=== PATIENT | male | born 1995 | race African-American/Black ===

== ENCOUNTER 2020-09-18 03:20 | Inpatient (IN) | payer SELFPAY ==
[2020-09-18] VITALS (14 sets, daily range): BP systolic 127–154; BP diastolic 71–88
[~2020-09-18] VITALS: Ht 177.8 cm; Wt 86.8 kg
[2020-09-18] MEDS: IV NORMAL SALINE 1000ML BAG 1,000 ML IV SCH ×2 (02:55→15:53)
[~2020-09-18 03:20] MED LIST: AMOX500T PO; IBUP-1060 PO; PRED50TA PO
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
[2020-09-18 03:51] LABS: BASO # 0.1 x10^3/uL (0.0-0.2); BASO % 1 % (0-3); EOS # 0.1 x10^3/uL (0.0-0.7); EOS % 1 % (0-3); HEMATOCRIT 45.4 % (39.0-53.0); HEMOGLOBIN 15.2 g/dL (13.0-17.5); LYMPH % 50 % (24-48); MEAN CORPUSCULAR HEMOGLOBIN 31 pg (25-35); MEAN CORPUSCULAR HGB CONC 33 g/dL (31-37); MEAN CORPUSCULAR VOLUME 94 fL (79-100); MONO # 1.4 x10^3/uL (0.0-1.1); MONO % 10 % (0-9); NEUT # 5.3 x10^3/uL (1.8-7.7); NEUT % 39 % (31-73); PLATELET COUNT 306 x10^3/uL (140-400); RED BLOOD COUNT 4.82 x10^6/uL (4.30-5.70); RED CELL DISTRIBUTION WIDTH 12.3 % (11.5-14.5); WHITE BLOOD COUNT 13.9 x10^3/uL (4.0-11.0)
[2020-09-18 03:52] LABS: CREATININE 1.4 mg/dL (0.7-1.3); GFR 74.1; POTASSIUM 3.4 mmol/L (3.5-5.1)
[2020-09-18 03:53] LABS: PROTHROMBIN TIME PATIENT 12.9 SEC (11.7-14.0)
[2020-09-18 03:58] LABS: ALBUMIN 4.4 g/dL (3.4-5.0); ALBUMIN/GLOBULIN RATIO 1.3 (1.0-1.7); MAGNESIUM 2.2 mg/dL (1.8-2.4); TOTAL BILIRUBIN 0.3 mg/dL (0.2-1.0); TOTAL PROTEIN 7.9 g/dL (6.4-8.2)
[2020-09-18] MEDS ORDERED: IV NORMAL SALINE 1000ML BAG 1,000 ML IV ONE (04:00)
[2020-09-18] MEDS ORDERED: fentaNYL PF VIAL 100 MCG/2 ML VIAL IVP ONE (04:00)
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
[2020-09-18] MEDS ORDERED: CONTRAST GIVEN. MC PRN (04:15)
[2020-09-18] MEDS ORDERED: IOHEXOL 350 MG/ML 100 ML VIAL. IV ONE (04:30)
[2020-09-18] MEDS ORDERED: fentaNYL PF VIAL 100 MCG/2 ML VIAL IV ONE (04:30)
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
[2020-09-18] MEDS ORDERED: ONDANSETRON PF 4 MG/2 ML VIAL. IV PRN ×3 (05:45→12:15)
[2020-09-18 06:14] LABS: BILIRUBIN,URINE NEGATIVE (NEG); CLARITY,URINE CLEAR; COLOR,URINE YELLOW; NITRITE,URINE NEGATIVE (NEG); PROTEIN,URINE NEGATIVE (NEG-TRACE); UROBILINOGEN,URINE 0.2 mg/dL (0.2 mg/dL)
[2020-09-18 06:23] LABS: BARBITURATES NEG (NEG); BENZODIAZEPINES NEG (NEG); CANNABINOIDS POS (NEG); COCAINE NEG (NEG); METHADONE NEG (NEG); OPIATES NEG (NEG); PHENCYCLIDINE NEG (NEG)
[2020-09-18 06:25] LABS: AMPHETAMINE/METHAMPHETAMINE NEG (NEG)
[2020-09-18 06:36] LABS: BACTERIA,URINE 0 /HPF (0-FEW); RBC,URINE 0 /HPF (0-2); WBC,URINE 0 /HPF (0-4)
[2020-09-18] MEDS: fentaNYL PF VIAL 100 MCG/2 ML VIAL IV PRN ×4 (08:07→11:38)
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
[2020-09-18] MEDS ORDERED: MORPHINE SULFATE 2 MG/ML VIAL. IV PRN (09:30)
[2020-09-18] MEDS ORDERED: IV RINGERS,LACTATED 1000ML 1,000 ML IV SCH (09:30)
[2020-09-18] MEDS ORDERED: HYDROmorphone 2 MG/ML VIAL IV PRN ×2 (09:30→12:15)
[2020-09-18] MEDS ORDERED: LIDOCAINE 1% PF 2 ML VIAL. ID PRN (09:30)
[2020-09-18] MEDS ORDERED: fentaNYL PF VIAL 100 MCG/2 ML VIAL IV PRN (09:30)
[2020-09-18] MEDS ORDERED: PROCHLORPERAZINE 10 MG/2 ML VIAL. IV PRN (09:30)
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
[2020-09-18] MEDS ORDERED: fentaNYL PF VIAL 100 MCG/2 ML VIAL ONE ×2 (11:41→12:10)
[2020-09-18] MEDS ORDERED: FAMOTIDINE 20 MG/2 ML VIAL ONE (11:46)
[2020-09-18] MEDS ORDERED: DEXAMETHASONE SOD PHOS 4 MG/ML VIAL ONE (11:46)
[2020-09-18] MEDS ORDERED: SEVOFLURANE 31 TO 60 MINUTES. IH ONE (11:53)
[2020-09-18] MEDS ORDERED: LIDOCAINE 2% PF 5 ML VIAL. ONE (11:53)
[2020-09-18] MEDS ORDERED: ONDANSETRON PF 4 MG/2 ML VIAL. ONE (11:53)
[2020-09-18] MEDS ORDERED: PROPOFOL 10 MG/ML (20ML) VIAL. IV ONE (11:53)
[2020-09-18] MEDS ORDERED: ALBUTEROL SULFATE 2.5 MG/3 ML NEBU. NEB PRN (12:15)
[2020-09-18] MEDS ORDERED: cloNIDine HCL 0.1 MG TABLET PO PRN (12:15)
[2020-09-18] MEDS ORDERED: MAG HYDROX/ALUMINUM HYD/SIMETH 30 ML ORAL.SUSP PO PRN (12:15)
[2020-09-18] MEDS ORDERED: ACETAMINOPHEN 650 MG SUPP.RECT. PR PRN (12:15)
[2020-09-18] MEDS ORDERED: SODIUM PHOSPHATES 19/7GM 133 ML ENEMA. PR PRN (12:15)
[2020-09-18] MEDS ORDERED: ACETAMINOPHEN 325 MG TABLET. PO PRN (12:15)
[2020-09-18] MEDS ORDERED: DOCUSATE SODIUM 100 MG CAPSULE. PO PRN (12:15)
[2020-09-18] MEDS ORDERED: 0.9 % SODIUM CHLORIDE 10 ML DISP.SYRIN. IV PRN (12:15)
[2020-09-18] MEDS ORDERED: guaiFENesin ORAL 200 MG/10 ML LIQUID. PO PRN (12:15)
[2020-09-18] MEDS ORDERED: HYDROmorphone 2 MG/ML VIAL ONE (12:30)
[2020-09-18] MEDS ORDERED: VANCOMYCIN 1 GM VIAL. ONE (13:16)
[2020-09-18] MEDS ORDERED: BUPIVACAINE MPF 0.5% 30 ML VIAL. ONE (13:23)
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
[2020-09-18] MEDS ORDERED: POLYETHYLENE GLYCOL 3350 17 GM PACKET. PO PRN (14:00)
[2020-09-18] MEDS ORDERED: MORPHINE SULFATE 4 MG/ML VIAL. IVP PRN (14:00)
[2020-09-18] MEDS ORDERED: DEXTROSE 50% 25 GM / 50ML DISP.SYRIN. IV PRN (14:00)
[2020-09-18] MEDS ORDERED: fentaNYL PF VIAL 100 MCG/2 ML VIAL IVP PRN (14:00)
[2020-09-18] MEDS ORDERED: ONDANSETRON PF 4 MG/2 ML VIAL. IVP PRN (14:00)
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
[2020-09-18] MEDS: SENNOSIDES/DOCUSATE 8.6/50MG TABLET. PO SCH (15:00)
[2020-09-18] MEDS ORDERED: WARFARIN 7.5 MG TABLET. PO ONE (16:00)
[2020-09-18] MEDS: oxyCODONE IR 5 MG TABLET PO PRN (16:49)
--- NOTE | 2020-09-18 17:38 | EKG ---
[facility] [address] [place] [address] Test Date: 2020-09-18 Test Time: 03:43:05 Pat Name: MEME IVORY Department: Room: Gender: M Section Hand Helper: : 1995 Requested By: NÉSTOR SPANN Order Number: [id number] Reading MD: Measurements Intervals [place] Rate: 102 P: -36 CA: 132 QRS: 84 QRSD: 80 T: 66 QT: 334 QTc: 439 Interpretive Statements SUPRAVENTRICULAR RHYTHM COMPLEX(ES) WITH ABERRANT INTRAVENTRICULAR CONDUCTION INCOMPLETE RIGHT BUNDLE BRANCH BLOCK QRS(T) CONTOUR ABNORMALITY CONSIDER ANTEROLATERAL MYOCARDIAL DAMAGE ABNORMAL ECG RI6.01 No previous ECG available for comparison
[2020-09-18] MEDS: HYDROcodone/APAP 7.5/325MG 1 TAB TABLET PO PRN ×2 (18:28→23:38)
[2020-09-18] MEDS: ASPIRIN ENTERIC COATED 325 MG TABLET.DR. PO SCH (21:00)
[2020-09-19 03:00] VITALS: BP 123/51
[2020-09-19] MEDS ORDERED: MAGNESIUM HYDROXIDE 2,400 MG/30 ML ORAL.SUSP. PO PRN (06:00)
[2020-09-19] MEDS: HYDROcodone/APAP 7.5/325MG 1 TAB TABLET PO PRN ×3 (06:20→17:44)
[2020-09-19 07:00] VITALS: BP 127/68
[2020-09-19] MEDS: ASPIRIN ENTERIC COATED 325 MG TABLET.DR. PO SCH ×2 (08:12→20:54)
[2020-09-19] MEDS: SENNOSIDES/DOCUSATE 8.6/50MG TABLET. PO SCH (08:12)
[2020-09-19] MEDS: IV NORMAL SALINE 1000ML BAG 1,000 ML IV SCH ×2 (08:15→13:15)
[2020-09-19] MEDS: oxyCODONE IR 5 MG TABLET PO PRN ×3 (08:15→20:54)
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
[2020-09-19 11:00] VITALS: BP 122/70
[2020-09-19 14:07] LABS: HEMATOCRIT 36.2 % (39.0-53.0); HEMOGLOBIN 12.3 g/dL (13.0-17.5)
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
[2020-09-19 15:00] VITALS: BP 124/74
[2020-09-19] MEDS ORDERED: BISACODYL 10 MG SUPP.RECT. PR PRN (16:00)
[2020-09-19 19:45] VITALS: BP 121/74
[2020-09-19 22:50] VITALS: BP 139/68
[2020-09-20] MEDS: oxyCODONE IR 5 MG TABLET PO PRN ×3 (02:27→11:16)
[2020-09-20 03:30] VITALS: BP 118/63
[2020-09-20] MEDS: IV NORMAL SALINE 1000ML BAG 1,000 ML IV SCH ×2 (04:15→13:14)
[2020-09-20 07:00] VITALS: BP 124/75
[2020-09-20] MEDS: ASPIRIN ENTERIC COATED 325 MG TABLET.DR. PO SCH ×2 (08:20→21:00)
[2020-09-20] MEDS: HYDROcodone/APAP 7.5/325MG 1 TAB TABLET PO PRN ×3 (08:21→19:12)
[2020-09-20] MEDS: SENNOSIDES/DOCUSATE 8.6/50MG TABLET. PO SCH (08:21)
[2020-09-20 08:31] LABS: BASO % 0 % (0-3); EOS % 0 % (0-3); HEMOGLOBIN 12.4 g/dL (13.0-17.5); LYMPH # 2.3 x10^3/uL (1.0-4.8); LYMPH % 20 % (24-48); MEAN CORPUSCULAR HEMOGLOBIN 32 pg (25-35); MEAN CORPUSCULAR HGB CONC 34 g/dL (31-37); MEAN CORPUSCULAR VOLUME 95 fL (79-100); MONO # 1.4 x10^3/uL (0.0-1.1); MONO % 12 % (0-9); NEUT # 7.6 x10^3/uL (1.8-7.7); NEUT % 67 % (31-73); PLATELET COUNT 222 x10^3/uL (140-400); RED BLOOD COUNT 3.91 x10^6/uL (4.30-5.70); RED CELL DISTRIBUTION WIDTH 12.4 % (11.5-14.5); WHITE BLOOD COUNT 11.3 x10^3/uL (4.0-11.0)
[2020-09-20 08:45] LABS: CALCIUM 8.9 mg/dL (8.5-10.1); CREATININE 0.8 mg/dL (0.7-1.3); GFR 141.4; POTASSIUM 3.4 mmol/L (3.5-5.1)
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
[2020-09-20 11:00] VITALS: BP 131/75
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
[2020-09-20 15:00] VITALS: BP 123/73
[2020-09-20 19:00] VITALS: BP 122/74
[2020-09-20 23:41] VITALS: BP 129/70
[2020-09-21] MEDS: IV NORMAL SALINE 1000ML BAG 1,000 ML IV SCH ×2 (00:15→10:15)
[2020-09-21] MEDS: HYDROcodone/APAP 7.5/325MG 1 TAB TABLET PO PRN ×3 (01:00→11:13)
[2020-09-21 03:00] VITALS: BP 115/73
[2020-09-21 07:00] VITALS: BP 135/77
[2020-09-21 07:59] LABS: BASO % 0 % (0-3); EOS # 0.1 x10^3/uL (0.0-0.7); EOS % 1 % (0-3); HEMATOCRIT 37.3 % (39.0-53.0); HEMOGLOBIN 12.8 g/dL (13.0-17.5); LYMPH # 2.8 x10^3/uL (1.0-4.8); LYMPH % 26 % (24-48); MEAN CORPUSCULAR HEMOGLOBIN 32 pg (25-35); MEAN CORPUSCULAR HGB CONC 34 g/dL (31-37); MEAN CORPUSCULAR VOLUME 94 fL (79-100); MONO # 1.3 x10^3/uL (0.0-1.1); MONO % 12 % (0-9); NEUT # 6.6 x10^3/uL (1.8-7.7); NEUT % 61 % (31-73); PLATELET COUNT 243 x10^3/uL (140-400); RED BLOOD COUNT 3.98 x10^6/uL (4.30-5.70); RED CELL DISTRIBUTION WIDTH 12.5 % (11.5-14.5); WHITE BLOOD COUNT 10.8 x10^3/uL (4.0-11.0)
[2020-09-21 08:13] LABS: CALCIUM 9.3 mg/dL (8.5-10.1); CREATININE 0.9 mg/dL (0.7-1.3); GFR 123.4; POTASSIUM 3.7 mmol/L (3.5-5.1)
[2020-09-21] MEDS: SENNOSIDES/DOCUSATE 8.6/50MG TABLET. PO SCH (08:25)
[2020-09-21] MEDS: ASPIRIN ENTERIC COATED 325 MG TABLET.DR. PO SCH (08:25)
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
[2020-09-21 11:00] VITALS: BP 130/72
[2020-09-21] MEDS ORDERED: ACET650S11 PR (12:39)
[2020-09-21] MEDS ORDERED: HYDR-2765 PO (12:39)
[2020-09-21] MEDS ORDERED: ASPI325T11 PO (12:39)
--- NOTE | 2020-09-21 13:47 | NUR ---
Dr. Vazquez paged re: d/c home today.
[2020-09-21] MEDS: oxyCODONE IR 5 MG TABLET PO PRN (14:48)
--- NOTE | 2020-09-21 14:51 | NUR ---
Pt. discharged to home with Rx, verbalized understanding of discharge instructions. Aquacel Ag placed to R inner knee and R outer thigh incisions, harini intact.
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
--- NOTE | 2020-09-21 17:45 | NUR ---
Wound Care Pt discharged prior to arrival of wound care team
== END 2020-09-21 15:50 | disposition home or self-care (01) | DRG 481 ==
LOC: ER 03:20 → EEVIPCON 05:35 → MERGE 05:35 → 2 NORTH 05:35 → 4 NORTH 16:26
PROVIDERS: ADMIT Internal Medicine; ATTEND Internal Medicine
PROC: 0QSB04Z Reposition Right Lower Femur with Internal Fixation Device, Open Approach (ICD-10-PCS; principal; 2020-09-18 09:00)
DX: S72.401B Unspecified fracture of lower end of right femur, initial encounter for open fracture type I or II (principal); D68.0 Von Willebrand disease; S81.031A Puncture wound without foreign body, right knee, initial encounter; F17.210 Nicotine dependence, cigarettes, uncomplicated; I10 Essential (primary) hypertension; I70.201 Unspecified atherosclerosis of native arteries of extremities, right leg; M21.371 Foot drop, right foot; W34.00XA Accidental discharge from unspecified firearms or gun, initial encounter; Z82.49 Family history of ischemic heart disease and other diseases of the circulatory system; Z82.5 Family history of asthma and other chronic lower respiratory diseases; Z79.899 Other long term (current) drug therapy; Z20.822 Contact with and (suspected) exposure to COVID-19
CPT/HCPCS: 29515; 36415; 71045; 73560; 73706; 76000; 80048; 80053; 80307; 81001; 83735; 85014; 85018; 85025; 85610; 85730; 86850; 86900; 86901; 87426; 93005; 96365; 96366; 96375; 96376; C1713; G0480; J0690; J1100; J1170; J2060; J2405; J2704; J3010; J3370; J3490; J7030; J7120; U0003; 97110-GP; 97116-GP; 97530-GP; 97535-GO; 99285-25; G0378

== ENCOUNTER 2021-06-22 17:40 | Emergency (ER) | payer SELFPAY ==
[~2021-06-22 17:40] MED LIST changes: +ACET650S11 PR; +ASPI325T11 PO; +HYDR-2765 PO
== END 2021-06-22 20:01 | disposition left against medical advice (07) ==
LOC: ER 17:40
DX: S89.91XA Unspecified injury of right lower leg, initial encounter (principal); Z53.21 Procedure and treatment not carried out due to patient leaving prior to being seen by health care provider; X58.XXXA Exposure to other specified factors, initial encounter; Y93.89 Activity, other specified; Y92.89 Other specified places as the place of occurrence of the external cause; Y99.8 Other external cause status

== ENCOUNTER 2021-06-23 15:36 | Emergency (ER) | payer SELFPAY ==
[~2021-06-23] VITALS: Ht 185.4 cm; Wt 85.4 kg
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
[2021-06-23 15:56] VITALS: BP 125/86
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
== END 2021-06-23 17:02 | disposition home or self-care (01) ==
LOC: ER 15:36
DX: S83.91XA Sprain of unspecified site of right knee, initial encounter (principal); F17.200 Nicotine dependence, unspecified, uncomplicated; W22.8XXA Striking against or struck by other objects, initial encounter; Y93.89 Activity, other specified; Y92.89 Other specified places as the place of occurrence of the external cause; Y99.8 Other external cause status
CPT/HCPCS: 29505; 73564; 99283